=== PATIENT | female | born 1995 | race Caucasian/White ===

== ENCOUNTER 2019-01-25 11:35 | Inpatient (IN) ==
[2019-01-25] MEDS ORDERED: BETAMETH SODIUM PHOS/ACETATE 30 MG/5 ML VIAL IM SCH (14:00)
[2019-01-25 14:05] LABS: Basophils % 0.1 % (0.0-0.8); Eosinophils % 0.1 % (0.00-10.9); Hematocrit 29.2 VOL% (35.7-47.0); Hemoglobin 9.5 GM/DL (12.0-16.0); Immature Granulocytes % 0.2 %; Immature Granulocytes Absolute 0.02 #; Lymphocytes # 1.5 10*3/uL (1.4-4.0); Lymphocytes % 18.4 % (21.3-54.2); Mean Corpuscular HGB Conc 32.5 GM/DL (32-36); Mean Corpuscular Volume 92.7 FL (87-102); Mean Platelet Volume 9.7 FL (9.6-12.0); Monocytes % 9.3 % (1.7-12.7); Neutrophils % 71.9 % (38.7-73.9); Platelet Count 252 T/CUMM (130-400); Red Blood Count 3.15 MC/CUMM (3.8-5.5); Red Cell Distribution Width 12.7 % (9.3-17.3); White Blood Count 8.3 T/CUMM (4-12)
[2019-01-25] MEDS: LACTATED RINGERS 1,000 ML IV SCH (14:58)
[2019-01-25] MEDS: AMPICILLIN INJ 2,000 MG in SODIUM CHLORIDE 0.9% 100 ML IV SCH ×2 (14:59→19:45)
[2019-01-26] MEDS: LACTATED RINGERS 1,000 ML IV SCH ×3 (00:02→21:28)
[2019-01-26] MEDS: AMPICILLIN INJ 2,000 MG in SODIUM CHLORIDE 0.9% 100 ML IV SCH ×4 (02:08→21:28)
[2019-01-26 03:03] LABS: Basophils % 0.1 % (0.0-0.8); Hematocrit 28.9 VOL% (35.7-47.0); Hemoglobin 9.2 GM/DL (12.0-16.0); Immature Granulocytes % 0.6 %; Immature Granulocytes Absolute 0.06 #; Lymphocytes # 1.2 10*3/uL (1.4-4.0); Lymphocytes % 12.5 % (21.3-54.2); Mean Corpuscular HGB Conc 31.8 GM/DL (32-36); Mean Corpuscular Volume 93.5 FL (87-102); Mean Platelet Volume 9.9 FL (9.6-12.0); Monocytes % 4.2 % (1.7-12.7); Neutrophils % 82.6 % (38.7-73.9); Platelet Count 259 T/CUMM (130-400); Red Blood Count 3.09 MC/CUMM (3.8-5.5); Red Cell Distribution Width 12.5 % (9.3-17.3); White Blood Count 9.4 T/CUMM (4-12)
[2019-01-26] MEDS ORDERED: BETAMETH SODIUM PHOS/ACETATE 30 MG/5 ML VIAL IM SCH (03:03)
[2019-01-26] MEDS: ONDANSETRON 4 MG/2 ML VIAL IV PRN (08:55)
[2019-01-26] MEDS ORDERED: SODIUM PHOSPHATE ENEMA 133 ML BOTTLE RECTAL ONE (12:31)
[2019-01-27] MEDS: AMPICILLIN INJ 2,000 MG in SODIUM CHLORIDE 0.9% 100 ML IV SCH ×4 (02:13→20:51)
[2019-01-27 06:32] LABS: Hematocrit 24.7 VOL% (35.7-47.0); Hemoglobin 7.8 GM/DL (12.0-16.0); Red Blood Count 2.63 MC/CUMM (3.8-5.5); White Blood Count 14.8 T/CUMM (4-12)
[2019-01-27 06:33] LABS: Basophils % 0.1 % (0.0-0.8); Immature Granulocytes Absolute 0.15 #; Lymphocytes # 1.4 10*3/uL (1.4-4.0); Lymphocytes % 9.3 % (21.3-54.2); Mean Corpuscular HGB Conc 31.6 GM/DL (32-36); Mean Corpuscular Volume 93.9 FL (87-102); Mean Platelet Volume 10.2 FL (9.6-12.0); Monocytes % 9.8 % (1.7-12.7); Neutrophils % 79.8 % (38.7-73.9); Platelet Count 226 T/CUMM (130-400); Red Cell Distribution Width 12.9 % (9.3-17.3)
[2019-01-28] MEDS: ONDANSETRON 4 MG/2 ML VIAL IV PRN (01:11)
[2019-01-28] MEDS: AMPICILLIN INJ 2,000 MG in SODIUM CHLORIDE 0.9% 100 ML IV SCH ×4 (01:59→20:07)
[2019-01-28 05:50] LABS: Hematocrit 23.1 VOL% (35.7-47.0); Hemoglobin 7.4 GM/DL (12.0-16.0); Immature Granulocytes % 1.4 %; Immature Granulocytes Absolute 0.14 #; Lymphocytes # 1.8 10*3/uL (1.4-4.0); Lymphocytes % 18.2 % (21.3-54.2); Mean Corpuscular Volume 95.9 FL (87-102); Mean Platelet Volume 10.4 FL (9.6-12.0); Monocytes % 13.6 % (1.7-12.7); Neutrophils % 66.8 % (38.7-73.9); Platelet Count 212 T/CUMM (130-400); Red Blood Count 2.41 MC/CUMM (3.8-5.5); Red Cell Distribution Width 12.9 % (9.3-17.3); White Blood Count 9.8 T/CUMM (4-12)
[2019-01-28] MEDS: DOCUSATE SODIUM 100 MG CAPSULE PO SCH ×2 (11:21→21:19)
[2019-01-29] MEDS: AMPICILLIN INJ 2,000 MG in SODIUM CHLORIDE 0.9% 100 ML IV SCH ×4 (02:17→20:13)
[2019-01-29] MEDS: ONDANSETRON 4 MG/2 ML VIAL IV PRN (10:36)
[2019-01-29] MEDS ORDERED: SODIUM CHLORIDE 0.9% 1,000 ML IV PRN ×2 (11:03→12:37)
[2019-01-29] MEDS: DOCUSATE SODIUM 100 MG CAPSULE PO SCH ×2 (20:12→21:24)
[2019-01-30] MEDS: AMPICILLIN INJ 2,000 MG in SODIUM CHLORIDE 0.9% 100 ML IV SCH ×4 (02:32→20:35)
[2019-01-30] MEDS: LACTATED RINGERS 1,000 ML IV SCH ×5 (07:53→23:23)
[2019-01-30] MEDS ORDERED: OXYTOCIN/LR 20 UNIT/1,000 ML BAG IV SCH (08:00)
[2019-01-30] MEDS ORDERED: PROMETHAZINE 25 MG/1 ML VIAL IM ONE (09:36)
[2019-01-30] MEDS ORDERED: CITRIC ACID/SODIUM CITRATE 30 ML UDCUP PO ONE (09:36)
[2019-01-30] MEDS ORDERED: diphenhydrAMINE 50 MG/1 ML VIAL IV PRN ×2 (09:36)
[2019-01-30] MEDS ORDERED: LACTATED RINGERS 1,000 ML IV ONE (09:36)
[2019-01-30] MEDS ORDERED: FAMOTIDINE 20 MG/2 ML VIAL IV ONE (09:36)
[2019-01-30] MEDS ORDERED: ePHEDrine 50 MG/ML AMP IV PRN (09:36)
[2019-01-30] MEDS ORDERED: NALOXONE 0.4 MG/ML VIAL IV PRN (09:36)
[2019-01-30] MEDS ORDERED: LACTATED RINGERS 1,000 ML IV SCH (10:00)
[2019-01-30 11:25] LABS: Basophils % 0.1 % (0.0-0.8); Eosinophils # 0.1 10*3/uL (0.0-0.87); Eosinophils % 0.7 % (0.00-10.9); Hematocrit 33.3 VOL% (35.7-47.0); Immature Granulocytes % 0.9 %; Immature Granulocytes Absolute 0.07 #; Mean Corpuscular HGB Conc 32.4 GM/DL (32-36); Mean Corpuscular Volume 91.7 FL (87-102); Mean Platelet Volume 9.9 FL (9.6-12.0); Monocytes % 11.2 % (1.7-12.7); Neutrophils % 62.1 % (38.7-73.9); Platelet Count 254 T/CUMM (130-400); Red Cell Distribution Width 13.1 % (9.3-17.3)
[2019-01-30 11:33] LABS: Hemoglobin 10.8 GM/DL (12.0-16.0); Red Blood Count 3.63 MC/CUMM (3.8-5.5)
[2019-01-30] MEDS: fentaNYL 2 MCG/ROPIV 0.2% EPID 100 ML EPIDURAL SCH ×2 (12:28→23:23)
[2019-01-30 13:45] LABS: Apearance,Urine CLEAR (Clear); Bilirubin,Urine Negative (Negative); Blood, Urine Moderate mg/dL (Negative); Glucose,Urine (UA) Negative (Negative); Ketones,Urine Negative (Negative); Nitrite,Urine Negative (Negative); Protein,Urine Negative; RBC,Urine 1 /HPF (0-4); Transitional Epi Cells,Urine Occasional /HPF (<1); Urine Color Straw (Yellow); Urine Specific Gravity 1.008 (1.001-1.035); Urine Urobilinogen < 2.0 EU/DL (0.2-1.0); WBC,Urine <1 /HPF (0-6)
[2019-01-30] MEDS ORDERED: SODIUM CHLORIDE 0.9% 1,000 ML IV ONE (14:11)
[2019-01-31] MEDS: AMPICILLIN INJ 2,000 MG in SODIUM CHLORIDE 0.9% 100 ML IV SCH ×2 (02:10→08:03)
[2019-01-31] MEDS: fentaNYL 2 MCG/ROPIV 0.2% EPID 100 ML EPIDURAL SCH (07:37)
[2019-01-31] MEDS ORDERED: TRANEXAMIC ACID 1,000 MG/10 ML VIAL ONE (09:56)
[2019-01-31] MEDS ORDERED: CARBOPROST TROMETHAMINE 250 MCG/ML AMP IM ONE (09:56)
[2019-01-31] MEDS ORDERED: miSOPROStol 200 MCG TABLET ONE (09:56)
[2019-01-31] MEDS ORDERED: OXYTOCIN/LR 20 UNIT/1,000 ML BAG IV ONE ×3 (09:56→17:20)
[2019-01-31] MEDS ORDERED: oxyCODONE/ACETAMINOPHEN 5-325 MG TABLET PO PRN ×4 (10:34→17:20)
[2019-01-31] MEDS ORDERED: MEASLES/MUMPS/RUBELLA VACCINE 0.5 ML VIAL SUBCUT ONE (10:34)
[2019-01-31] MEDS ORDERED: BISACODYL 10 MG SUPP RECTAL PRN ×2 (10:34→17:20)
[2019-01-31] MEDS ORDERED: LANOLIN 50% CREAM 0.3 OZ TUBE TOP PRN ×2 (10:34→17:20)
[2019-01-31] MEDS ORDERED: BENZOCAINE 20%/MENTHOL 0.5% SPRAY 56 GM CAN TOP PRN ×2 (10:34→17:20)
[2019-01-31] MEDS ORDERED: RHO(D) IMMUNE GLOBULIN 300 MCG SYRINGE IM ONE (10:34)
[2019-01-31] MEDS ORDERED: HYDROCORTISONE 2.5% RECTAL CREAM 30 GM TUBE TOP PRN ×2 (10:34→17:20)
[2019-01-31] MEDS ORDERED: IBUPROFEN 800 MG TABLET PO PRN (10:34)
[2019-01-31] MEDS ORDERED: ONDANSETRON 4 MG/2 ML VIAL IV PRN ×2 (10:34→17:20)
[2019-01-31] MEDS ORDERED: WITCH HAZEL PADS 100/JAR TOP PRN ×2 (10:34→17:20)
[2019-01-31] MEDS ORDERED: ACETAMINOPHEN 325 MG TABLET PO PRN ×2 (10:34→17:20)
[2019-01-31] MEDS ORDERED: DIPH/TET/ACEL PERT BOOSTER VACCINE 0.5 ML VIAL IM ONE (10:34)
[2019-01-31 10:44] LABS: Cord Venous Blood HCO3 24.9 MMOL/L; Cord Venous Blood PO2 25.3
[2019-01-31] MEDS ORDERED: ACETAMINOPHEN/CODEINE 300-30 MG TABLET PO PRN ×2 (19:33)
[2019-01-31] MEDS: DOCUSATE SODIUM 100 MG CAPSULE PO SCH (20:45)
[2019-01-31] MEDS ORDERED: DOCUSATE SODIUM 100 MG CAPSULE PO SCH (21:00)
[2019-01-31] MEDS: IBUPROFEN 800 MG TABLET PO PRN (22:35)
[2019-02-01 06:18] LABS: Basophils % 0.2 % (0.0-0.8); Eosinophils # 0.1 10*3/uL (0.0-0.87); Eosinophils % 0.6 % (0.00-10.9); Hematocrit 27.9 VOL% (35.7-47.0); Immature Granulocytes Absolute 0.37 #; Lymphocytes # 2.4 10*3/uL (1.4-4.0); Mean Corpuscular HGB Conc 32.3 GM/DL (32-36); Mean Corpuscular Volume 91.8 FL (87-102); Mean Platelet Volume 9.8 FL (9.6-12.0); Monocytes % 9.5 % (1.7-12.7); Neutrophils % 74.7 % (38.7-73.9); Platelet Count 232 T/CUMM (130-400); Red Blood Count 3.04 MC/CUMM (3.8-5.5); Red Cell Distribution Width 13.1 % (9.3-17.3); White Blood Count 18.8 T/CUMM (4-12)
[2019-02-01 06:40] LABS: Band Neutrophils 1 % (0-10); Hypochromasia 1+; Lymphocytes 7 % (20-55); Platelet Estimate Adequate; Segmented Neutrophils 83 % (50-85); Total Cells Counted 100
[2019-02-01] MEDS: DOCUSATE SODIUM 100 MG CAPSULE PO SCH ×2 (09:08→22:14)
[2019-02-01] MEDS: IBUPROFEN 800 MG TABLET PO PRN ×2 (09:08→21:07)
[2019-02-01] MEDS ORDERED: MAGNESIUM CITRATE 300 ML BOTTLE PO PRN (18:02)
[2019-02-01] MEDS ORDERED: SODIUM PHOSPHATE ENEMA 133 ML BOTTLE RECTAL ONE (22:00)
[2019-02-02 07:24] VITALS: BP 99/48
[2019-02-02] MEDS: DOCUSATE SODIUM 100 MG CAPSULE PO SCH (09:21)
[2019-02-02] MEDS: IBUPROFEN 800 MG TABLET PO PRN (09:21)
[2019-02-02] MEDS ORDERED: DIPH/TET/ACEL PERT BOOSTER VACCINE 0.5 ML VIAL IM ONE (11:20)
== END 2019-02-02 13:35 | disposition home or self-care (01) | DRG 807 ==
LOC: N.LDOUT 11:35 → N.LD 11:36 → N.OB 01-31 17:11
PROVIDERS: ADMIT Obstetrics & Gynecology; ATTEND Obstetrics & Gynecology